=== PATIENT | female | born 1990 | race Caucasian/White ===

== ENCOUNTER 2023-12-30 10:00 | Inpatient (IN) | payer BC ==
[2024-01-02] MEDS ORDERED: EPINEPHrine 1 MG/ML VIAL ONE (10:03)
[2024-01-02] MEDS ORDERED: Bupivacaine PF 0.5% 30 ML VIAL ONE (10:04)
[2024-01-02] MEDS ORDERED: CEFAZOLIN 2 GM VIAL ONE (10:04)
[2024-01-02] MEDS ORDERED: Midazolam HCl 2 mg/2 ml Vial ONE (10:05)
[2024-01-02] MEDS ORDERED: Bupivacaine 0.25% HCL 30 ML VIAL ONE (10:06)
[2024-01-02] MEDS ORDERED: fentaNYL 50 mcg/mL 1 mL Vial ONE ×5 (10:06→14:35)
[2024-01-02] MEDS ORDERED: Lidocaine 4% PF 5 ML AMP ONE (10:09)
[2024-01-02] MEDS ORDERED: Rocuronium Bromide 10 MG/ML (10ML VIAL) ONE (10:09)
[2024-01-02] MEDS ORDERED: Lidocaine 2% PF 5 ML VIAL ONE (10:09)
[2024-01-02] MEDS ORDERED: PROPOFOL 20 ML ONE (10:10)
[2024-01-02] MEDS ORDERED: ceFOXitin 1 GM VIAL ONE ×2 (10:41→12:38)
[2024-01-02] MEDS ORDERED: MINERAL OIL/WHITE PETROLATUM 3.5 GM TUBE ONE (10:44)
[2024-01-02] MEDS ORDERED: Scopolamine 1 mg/72 hour Patch ONE (10:54)
[2024-01-02] MEDS ORDERED: ePHEDrine Sulfate 50 MG/10 ML VIAL ONE (11:18)
[2024-01-02] MEDS ORDERED: Ondansetron PF 4 MG/2 ML Vial ONE (11:22)
[2024-01-02] MEDS ORDERED: Dexamethasone 4 mg/ml Vial ONE (11:22)
[2024-01-02] MEDS ORDERED: PHENYLEPHRINE-NS 100 MCG/ML 10 ML SYRINGE ONE (11:22)
[2024-01-02] MEDS ORDERED: Indocyanine Green 25 MG/10 ML VIAL ONE (12:23)
[2024-01-02] MEDS ORDERED: SUGAMMADEX SODIUM 200 MG/2 ML VIAL ONE (14:04)
[2024-01-02] MEDS ORDERED: Ipratropium/Albuterol 3 ML NEB NEB PRN (15:13)
[2024-01-02 16:02] VITALS: BMI 32.3
[2024-01-02] MEDS: Acetaminophen 500 MG TAB PO SCH (16:35)
[2024-01-02] MEDS: Ketorolac Tromethamine 30 MG (1 mL) VIAL IVP SCH (17:20)
[2024-01-02] MEDS: Sodium Chloride 0.9% 1,000 ML IV SCH (18:22)
[2024-01-02] MEDS: Ondansetron PF 4 MG/2 ML Vial IVP PRN (19:58)
[2024-01-02] MEDS: cefOXitin 2 GM in Sodium Chloride 0.9% 100 ML IVPB SCH (21:03)
[2024-01-02] MEDS: Enoxaparin 40 MG (0.4 mL) SYRINGE SC SCH (21:10)
[2024-01-02] MEDS: Famotidine 20 MG TAB PO SCH (21:13)
[2024-01-02] MEDS: Gabapentin 100 MG CAP PO SCH (21:27)
[2024-01-03 06:01] LABS: #Basophils 0.02 10x3/uL (0.0-0.2); #Monocytes 0.62 10x3/uL (0.0-1.1); #Neutrophils 12.51 10x3/uL (1.5-8.4); %Basophils 0.1 % (0.0-2.0); %Lymphocytes 9.5 % (18.0-47.0); %Monocytes 4.2 % (0.0-10.0); %Neutrophils 85.8 % (40.0-75.0); Hematocrit 32.8 % (34.9-44.5); Mean Corpuscular HGB CONC 33.5 g/dL (32.0-36.0); Mean Corpuscular Hemoglobin 31.3 pg (27.0-33.0); Mean Corpuscular Volume 93.2 fL (81.6-98.3); Platelet Count 222 10x3/uL (150-450); RBC Distribution Width 14.6 % (11.5-14.5); Red Blood Cell (RBC) Count 3.52 10x6/uL (3.90-5.03); White Blood Cell (WBC) Count 14.6 10x3/uL (3.5-10.5)
[2024-01-03 06:12] LABS: Anion Gap 17 mmol/L (10-20); BUN (Urea Nitrogen) 5 mg/dL (7.0-18.7); Calc. Creatinine Clearance 83 mL/min (70-130); Calcium 8.2 mg/dL (7.8-10.44); Carbon Dioxide 14 mmol/L (22-29); Chloride 110 mmol/L (98-107); Estimated GFR 54; Glucose 112 mg/dL (70-105); Potassium 4.3 mmol/L (3.5-5.1); Sodium 137 mmol/L (136-145)
[2024-01-03] MEDS: Levothyroxine Sodium 112 MCG TAB PO SCH (06:17)
[2024-01-03] MEDS: BuPROPion XL 150 MG ER.TAB PO SCH (09:40)
[2024-01-03] MEDS: Lactated Ringer's 1,000 ML IV SCH (12:00)
[2024-01-03] MEDS: traMADol HCl 50 MG TAB PO PRN (13:07)
[2024-01-03] MEDS ORDERED: HYDROcodone/Acetaminophen 7.5/325 mg Tablet PO PRN ×2 (15:14)
[2024-01-03] MEDS ORDERED: Acetaminophen 325 MG TAB PO PRN (15:14)
[2024-01-04] MEDS: Acetaminophen 325 MG TAB PO PRN (00:57)
[2024-01-04 07:30] LABS: Anion Gap 10 mmol/L (10-20); BUN (Urea Nitrogen) 4 mg/dL (7.0-18.7); Calc. Creatinine Clearance 115 mL/min (70-130); Calcium 8.6 mg/dL (7.8-10.44); Carbon Dioxide 23 mmol/L (22-29); Chloride 109 mmol/L (98-107); Estimated GFR 79; Glucose 88 mg/dL (70-105); Potassium 4.3 mmol/L (3.5-5.1); Sodium 138 mmol/L (136-145)
[2024-01-04 07:51] VITALS: BP 122/75; TEMP 98.6
== END 2024-01-04 11:42 | disposition home or self-care (01) | DRG 330 ==
LOC: CSHTELE 01-02 09:17 → EDSTATUS 01-02 10:00 → CSHTELE 01-02 15:56
PROVIDERS: ADMIT Surgery; ATTEND Surgery
PROC: 0DTN4ZZ Resection of Sigmoid Colon, Percutaneous Endoscopic Approach (ICD-10-PCS; principal; 2024-01-02)
PROC: 8E0W4CZ Robotic Assisted Procedure of Trunk Region, Percutaneous Endoscopic Approach (ICD-10-PCS; 2024-01-02)
DX: K57.32 Diverticulitis of large intestine without perforation or abscess without bleeding (principal); Q43.8 Other specified congenital malformations of intestine; G43.909 Migraine, unspecified, not intractable, without status migrainosus; E03.9 Hypothyroidism, unspecified; Z79.899 Other long term (current) drug therapy; Z90.49 Acquired absence of other specified parts of digestive tract; Z98.51 Tubal ligation status; Z79.890 Hormone replacement therapy; Z88.8 Allergy status to other drugs, medicaments and biological substances; Z88.5 Allergy status to narcotic agent; E86.0 Dehydration; E66.9 Obesity, unspecified; F41.9 Anxiety disorder, unspecified; Z68.32 Body mass index [BMI] 32.0-32.9, adult; F17.210 Nicotine dependence, cigarettes, uncomplicated
CPT/HCPCS: 36415; 36416; 80048; 85025; 88307; A6258; J0171; J0665; J0694; J1100; J1650; J1885; J2001; J2250; J2405; J2704; J3010; J7030; J7120

== ENCOUNTER 2023-12-30 10:05 | Outpatient (CLI) | payer BC ==
[2023-12-30 11:19] LABS: Hematocrit 38.1 % (34.9-44.5); Hemoglobin 12.8 g/dL (12.0-15.5); Mean Corpuscular HGB CONC 33.6 g/dL (32.0-36.0); Mean Corpuscular Hemoglobin 30.9 pg (27.0-33.0); Mean Platelet Volume 10.3 fL (7.4-10.4); Platelet Count 273 10x3/uL (150-450); RBC Distribution Width 14.5 % (11.5-14.5); Red Blood Cell (RBC) Count 4.14 10x6/uL (3.90-5.03); White Blood Cell (WBC) Count 8.9 10x3/uL (3.5-10.5)
[2023-12-30 12:06] LABS: Anion Gap 11 mmol/L (10-20); BUN (Urea Nitrogen) 5 mg/dL (7.0-18.7); Calc. Creatinine Clearance 0 mL/min (70-130); Calcium 9.3 mg/dL (7.8-10.44); Carbon Dioxide 25 mmol/L (22-29); Chloride 106 mmol/L (98-107); Estimated GFR 75; Glucose 86 mg/dL (70-105); Potassium 4.4 mmol/L (3.5-5.1); Sodium 138 mmol/L (136-145)
[2023-12-30 16:04] LABS: Hemoglobin A1c 5.2 % (4.0-6.0)
== END 2023-12-30 10:06 | disposition home or self-care (01) ==
LOC: CSHLAB 10:05
PROVIDERS: ATTEND Surgery
DX: Z01.812 Encounter for preprocedural laboratory examination (principal); K57.32 Diverticulitis of large intestine without perforation or abscess without bleeding
CPT/HCPCS: 80048; 83036; 85027